=== PATIENT | male | born 1985 | race African-American/Black ===

== ENCOUNTER 2018-05-06 06:59 | Emergency (ER) | payer OTHER ==
[~2018-05-06] VITALS: Ht 180.3 cm; Wt 97.5 kg
[2018-05-06] MEDS ORDERED: NKM (07:07)
[2018-05-06] MEDS ORDERED: MEDROL4 M1 PO (07:29)
[2018-05-06] MEDS ORDERED: CYCLOBENZAPRINE10 MG ORAL (07:29)
[2018-05-06] MEDS ORDERED: IBUPROFEN600 MG ORAL (07:29)
[2018-05-06] MEDS ORDERED: Ketorolac 60mg Inj IM ONE (07:30)
[2018-05-06] MEDS ORDERED: Cyclobenzaprine 10mg Tab ORAL ONE (07:30)
--- NOTE | 2018-05-06 07:32 | Emergency Room Report ---
History of Present Illness General Chief Complaint: Back Pain-No Injury Source: Patient Present Illness HPI 32-year-old male with no medical problems, no surgical history, no tobacco alcohol or drug use, presents with atraumatic right low back pain radiating down his right leg, reports it's sharp severe gradual onset and gradually worsening pain that for the last couple of days has been persistent. He tried ibuprofen without relief. He denies hematuria, dysuria, radiation of the pain into the testicle, groin pain, fevers, chills, abdominal pain, any obvious injury or heavy lifting. Allergies: Coded Allergies: No Known Allergies (Unverified , 05/06/18) Patient History Past Medical History: see triage record Reviewed Nursing Documentation: PMH: Agreed; PSxH: Agreed Nursing Documentation-PMH Past Medical History: No Stated History Review of Systems All Other Systems: negative except mentioned in HPI Physical Exam Vital Signs Date Time Temp Pulse Resp B/P (MAP) Pulse Ox O2 Delivery O2 Flow Rate FiO2 05/06/18 07:03 97.6 65 18 115/80 97 Room Air 97.5 Sp02 EP Interpretation: reviewed, normal General Appearance: no apparent distress, alert, non-toxic Head: normocephalic Eyes: bilateral eye normal inspection, bilateral eye PERRL, bilateral eye EOMI ENT: normal ENT inspection, hearing grossly normal, normal pharynx, no angioedema, normal voice, moist mucus membranes Neck: normal inspection, full range of motion, supple, supple/symm/no masses Respiratory: chest non-tender, lungs clear, normal breath sounds, chest symmetrical, palpation of chest normal Cardiovascular #1: normal peripheral pulses, regular rate, rhythm Cardiovascular #2: 2+ radial (R), 2+ radial (L), 2+ dorsalis pedis (R), 2+ dorsalis pedis (L) Gastrointestinal: normal inspection, non tender, soft, no mass, no guarding, no rebound Rectal: deferred Genitourinary: normal inspection, no CVA tenderness Musculoskeletal: back normal, gait/station normal, normal range of motion, non- tender, no calf tenderness Neurologic: alert, responsive, level vial inspector III-XII nml as tested - Grossly, motor strength/tone normal, SLR negative - Positive straight leg raising test right lower extremity, negative on the left lower extremity, sensory intact, speech normal Psychiatric: judgement/insight normal, memory normal, mood/affect normal Skin: normal color, no rash, warm/dry, normal turgor Lymphatic: no adenopathy Medical Decision Making Diagnostic Impression: Primary Impression: Sciatica ER Course Patient with right low back pain radiating down right leg, straight leg raising test positive, no history of bowel or bladder symptomatology, normal neurologic examination, no history of IVDA, no history of trauma, will discharge home as mentioned diagnosis of sciatica, given Toradol 30 mg IM as well as Flexeril here , will give ibuprofen, Flexeril, Medrol Dosepak prescriptions Last Vital Signs Date Time Temp Pulse Resp B/P (MAP) Pulse Ox O2 Delivery O2 Flow Rate FiO2 05/06/18 07:27 97.6 05/06/18 07:03 65 18 115/80 97 Room Air Disposition: HOME, SELF-CARE Condition: Stable Scripts Methylprednisolone (MEDROL) 4 Mg Tab.ds.pk 4 MG PO DAILY for 6 Days, #1 PACK Prov: BEL HENLEY M.D 05/06/18 Cyclobenzaprine Hcl* (FLEXERIL*) 10 Mg Tablet 10 MG ORAL THREE TIMES A DAY, #20 TAB Prov: BEL HENLEY M.D 05/06/18 Ibuprofen* (MOTRIN*) 600 Mg Tablet 600 MG ORAL THREE TIMES A DAY, #20 TAB 0 Refills Prov: BEL HENLEY M.D 05/06/18 Departure Forms: Return to Work Return to Work in (Days): 2 Patient Instructions: Sciatica, Back Pain, Adult BEL HENLEY M.D May 06, 2018 07:32
[2018-05-06 07:43] VITALS: BP 115/80
== END 2018-05-06 07:45 | disposition home or self-care (01) ==
LOC: EMR 07:38
DX: M54.30 Sciatica, unspecified side (principal)
CPT/HCPCS: 96372; 99284

== ENCOUNTER 2018-07-04 23:11 | Emergency (ER) | payer OTHER ==
[~2018-07-04] VITALS: Ht 180.3 cm; Wt 89.8 kg
[~2018-07-04 23:11] MED LIST: CYCLOBENZAPRINE10 MG ORAL; IBUPROFEN600 MG ORAL; MEDROL4 M1 PO; NKM
[2018-07-04 23:25] VITALS: BP 120/70
[2018-07-04] MEDS ORDERED: Ketorolac 30mg Inj IM ONE (23:45)
[2018-07-05] MEDS ORDERED: ACETAMINOPHEN-1 EAC1 ORAL (00:29)
[2018-07-05] MEDS ORDERED: IBUPROFEN600 MG ORAL (00:29)
[2018-07-05 00:35] VITALS: BP 120/70
--- NOTE | 2018-07-05 00:57 | Emergency Room Report ---
History of Present Illness General Chief Complaint: Pain Source: Patient Present Illness HPI 32-year-old male presents ED complaining of bilateral knee pain. States the pain started after he started running. States he's been running 3-4 miles every day for 10 days straight. States he never ran prior to this. States having persistent pain to both knees since. Denies falling or twisting his knee. Pain is throbbing, 10 out of 10, radiating down both legs. States his shoes are old and these are the same shoes he wears for both running and work. Denies any other injuries. No other aggravating relieving factors. Denies any other associated symptoms Allergies: Coded Allergies: No Known Allergies (Unverified , 05/06/18) Patient History Past Medical History: none Past Surgical History: none Pertinent Family History: none Social History: Denies: smoking, alcohol use, drug use Immunizations: UTD Reviewed Nursing Documentation: PMH: Agreed; PSxH: Agreed Nursing Documentation-PMH Past Medical History: No Stated History Review of Systems All Other Systems: negative except mentioned in HPI Physical Exam Vital Signs Date Time Temp Pulse Resp B/P (MAP) Pulse Ox O2 Delivery O2 Flow Rate FiO2 07/04/18 23:16 98.0 70 16 126/74 97 Room Air 98.1 Sp02 EP Interpretation: reviewed, normal General Appearance: no apparent distress, alert, GCS 15, non-toxic Head: normocephalic Eyes: bilateral eye normal inspection, bilateral eye PERRL ENT: normal ENT inspection Neck: full range of motion Respiratory: normal inspection Cardiovascular #1: normal inspection Gastrointestinal: normal inspection Rectal: deferred Genitourinary: no CVA tenderness Musculoskeletal: normal range of motion, tender - bilateral knee Neurologic: alert, oriented x3, responsive, motor strength/tone normal, sensory intact, speech normal Psychiatric: normal inspection Skin: normal inspection Lymphatic: normal inspection Procedures Splinting Splinting : Consent: Verbal Pre-Made Type: KAUSHIK wrap - bilateral knee Pre-Proc Neuro Vasc Exam: normal Post-Proc Neuro Vasc Exam: normal Patient Tolerated: Well Complications: None Medical Decision Making Diagnostic Impression: Primary Impression: Knee pain, bilateral Qualified Codes: M25.561 - Pain in right knee; M25.562 - Pain in left knee ER Course Hospital Course 32 yo M presents with bilateral knee pain after running 10 straight days Differential diagnoses include: Fracture, dislocation, sprain, contusion Clinical course Patient placed on stretcher. After initial history and physical, I ordered pain medications and Xrays of bilateral knees Xrays prelim read shows no acute fracture/dislocation. placed in kaushik wrap Discussed findings with patient. Pain is likely related to sudden change in exercise regimen. patient admits to not being active prior to this. Body requires conditioning. His running shoes are also old. Recommend that he slowly builds up his running regimen with frequency and distance with each month. Recommend that patient get new running shoes. Recommend ice, rest in the short- term. If pain persists I recommend follow-up with outpatient orthopedics. I' ll provide referrals Diagnosis - bilateral knee pain Stable and discharged to home with prescription for Motrin, Tylenol #3. apply ice, keep elevated. weight bear as tolerated. Followup with PMD/ortho. Return to ED if symptoms recur or worsen Other X-Ray Diagnostic Results Other X-Ray Diagnostic Results #1: X-Ray ordered: R knee # of Views/Limited Vs Complete: 3 View Indication: Pain EP Interpretation: Yes Interpretation: no dislocation, no soft tissue swelling, no fractures Impression: No acute disease Electronically Signed by: Electronically signed by Mehul Herrera MD Other X-Ray Diagnostic Results #2: X-Ray ordered: L knee # of Views/Limited Vs Complete: 3 View Indication: Pain EP Interpretation: Yes Interpretation: no dislocation, no soft tissue swelling, no fractures Impression: No acute disease Electronically Signed by: Electronically signed by Mehul Herrera MD Last Vital Signs Date Time Temp Pulse Resp B/P (MAP) Pulse Ox O2 Delivery O2 Flow Rate FiO2 07/05/18 00:35 98.0 57 16 120/70 97 Room Air 98.1 Status: improved Disposition: HOME, SELF-CARE Condition: Stable Scripts Acetaminophen With Codeine (T#3) (TYLENOL #3 TAB*) Y Tab 1 TAB ORAL Q8H PRN for For Pain, #20 TAB Prov: Mehul Herrera MD 07/05/18 Ibuprofen* (MOTRIN*) 600 Mg Tablet 600 MG ORAL Q8H PRN for For Pain, #30 TAB 0 Refills Prov: Mehul Herrera MD 07/05/18 Patient Instructions: Knee Pain, [id number] Mehul Herrera MD Jul 05, 2018 00:57
--- NOTE | 2018-07-05 12:14 | Diagnostic Imaging Report ---
Indication: Left knee pain Technique: 3 views of the left knee Comparison: None. Correlation made to concurrent right knee radiographs. Findings: Bone mineralization within normal limits. Anatomic alignment and joint spaces are preserved. No evidence of acute fracture. No suprapatellar joint effusion identified. No radiopaque foreign body seen. Impression: No evidence of acute fracture or dislocation.
--- NOTE | 2018-07-05 12:16 | Diagnostic Imaging Report ---
Indication: Right knee pain Technique: 3 views of the right knee Comparison: None. Correlation made to concurrent left knee radiographs. Findings: Bony mineralization within normal limits. Anatomic alignment and joint spaces are preserved. No evidence of acute fracture. No suprapatellar joint effusion identified. No radiopaque foreign body seen. Impression: No evidence of acute fracture or dislocation.
== END 2018-07-05 00:35 | disposition home or self-care (01) ==
LOC: EMR 23:27
DX: M25.562 Pain in left knee (principal); M25.561 Pain in right knee
CPT/HCPCS: 73562; 96372; 99284; J1885; 29505; 99283

== ENCOUNTER 2019-05-27 19:20 | Emergency (ER) | payer SELFPAY ==
[~2019-05-27] VITALS: Ht 180.3 cm; Wt 81.6 kg
[~2019-05-27 19:20] MED LIST changes: +ACETAMINOPHEN-1 EAC1 ORAL
--- NOTE | 2019-05-27 19:35 | NUR ---
ED Nurse Note: Pt ambulated to ED from home c/o SOB and chest tightness x3days. Pt states he has recently had a cold, denies adult asthma but has childhood hx. VSS spo2 99% on RA. A&Ox4
[2019-05-27 19:36] VITALS: BP 127/74
[2019-05-27] MEDS ORDERED: Albuterol ud Inhalation HHN ONE ×2 (19:45→20:30)
--- NOTE | 2019-05-27 20:11 | Diagnostic Imaging Report ---
EXAM: XR Chest, 1 View CLINICAL HISTORY: SOB TECHNIQUE: Frontal view of the chest. COMPARISON: none FINDINGS: Lungs: Unremarkable. No consolidation. Pleural space: Unremarkable. No pneumothorax. Heart: Unremarkable. No cardiomegaly. Mediastinum: Unremarkable. Bones/joints: Unremarkable. IMPRESSION: Normal chest x-ray.
[2019-05-27] MEDS ORDERED: Albuterol ud Inhalation ONE (20:16)
--- NOTE | 2019-05-27 20:58 | Emergency Room Report ---
History of Present Illness General Chief Complaint: Asthma Source: Patient Present Illness HPI The patient states that over the past week he has had an upper respiratory infection. He states he is much improved now. However, over the past couple days he has had shortness of breath and wheezing. He admits that he did have asthma as a child, however, not as an adult and does not use inhalers. He denies fever or chills. He denies sputum production. He has no other complaints. Allergies: Coded Allergies: No Known Allergies (Unverified , 05/06/18) Patient History Past Medical History: see triage record, asthma - As a child Social History: Denies: smoking, alcohol use, drug use Reviewed Nursing Documentation: PMH: Agreed; PSxH: Agreed Nursing Documentation-PMH Past Medical History: No History, Except For Hx Asthma: Yes Review of Systems All Other Systems: negative except mentioned in HPI Physical Exam Vital Signs Date Time Temp Pulse Resp B/P (MAP) Pulse Ox O2 Delivery O2 Flow Rate FiO2 05/27/19 19:24 98.1 69 127/74 (91) 96 05/27/19 19:36 18 Room Air 05/27/19 19:57 21 Sp02 EP Interpretation: reviewed, normal General Appearance: no apparent distress, alert, GCS 15, non-toxic Head: normocephalic, atraumatic Eyes: bilateral eye normal inspection, bilateral eye PERRL ENT: hearing grossly normal, normal pharynx, no angioedema, normal voice Neck: full range of motion, supple/symm/no masses Respiratory: chest non-tender, no respiratory distress, no retraction, no accessory muscle use, speaking full sentences, wheezing, expiration Cardiovascular #1: regular rate, rhythm, no edema Gastrointestinal: normal bowel sounds, non tender, soft, non-distended, no guarding, no rebound Rectal: deferred Musculoskeletal: back normal, gait/station normal, normal range of motion, non- tender Neurologic: alert, oriented x3, responsive, motor strength/tone normal, sensory intact, speech normal Psychiatric: judgement/insight normal, memory normal, mood/affect normal, no suicidal/homicidal ideation Skin: no rash Medical Decision Making Diagnostic Impression: Primary Impression: Acute bronchospasm ER Course This patient has a clinical presentation consistent with bronchospasm. Patient has a history of asthma as a child and has wheezing on physical exam. The patient was given albuterol and Atrovent nebulizer treatments. The patient was also given prednisone orally. The patient had significant improvement in subjective shortness of breath. The patient's lung exam improved significantly. The patient was given close return precautions and followup instructions. Chest X-Ray Diagnostic Results Chest X-Ray Diagnostic Results : Chest X-Ray Ordered: Yes # of Views/Limited/Complete: 1 View Indication: Shortness of Breath EP Interpretation: Yes Interpretation: no consolidation, no effusion, no pneumothorax, no acute cardiopulmonary disease Impression: No acute disease Electronically Signed by: Diane Aquino DO Last Vital Signs Date Time Temp Pulse Resp B/P (MAP) Pulse Ox O2 Delivery O2 Flow Rate FiO2 05/27/19 20:43 72 18 98 Room Air 05/27/19 20:21 21 05/27/19 19:36 98.1 127/74 Status: improved Disposition: HOME, SELF-CARE Condition: Improved Referrals: NOT CHOSEN IPA/MD,REFERRING (PCP) Patient Instructions: Asthma, Adult Diane Aquino DO May 27, 2019 20:58
[2019-05-27 21:00] VITALS: BP 127/74
[2019-05-27] MEDS ORDERED: PREDNISONE20 MG ORAL (21:00)
[2019-05-27] MEDS ORDERED: ALBUTEROL SULF8.5 GM INH (21:00)
--- NOTE | 2019-05-27 21:00 | NUR ---
ER DISCHARGE NOTE: Patient is cleared to be discharged per ERMD, pt is aox4, on room air, with stable vital signs. pt was given dc and prescription instructions, pt was able to verbalize understanding, pt id band removed. pt is able to ambulate with steady gait. pt took all belongings. Pt reports feeling much beter, sob resolved
== END 2019-05-27 21:00 | disposition home or self-care (01) ==
LOC: EMR 19:48
DX: J98.01 Acute bronchospasm (principal); J45.909 Unspecified asthma, uncomplicated
CPT/HCPCS: 71045; 94640; 99284